=== PATIENT | female | born 1985 | race Hispanic/Latino ===

== ENCOUNTER 2019-02-17 17:07 | Observation (INO) | payer MEDICAID ==
[2019-02-17 17:48] LABS: APPEARANCE,URINE Clear (CLEAR); BILIRUBIN,URINE Negative (NEGATIVE); COLOR,URINE Yellow (YELLOW); GLUCOSE, URINE (UA) Negative (NEGATIVE); KETONES,URINE Negative (NEGATIVE); LEUKOCYTE ESTERASE ,URINE Moderate (NEGATIVE); NITRATE,URINE Negative (NEGATIVE); OCCULT BLOOD,URINE Negative (NEGATIVE); PH,URINE 6.5 (5.0-8.0); PROTEIN,URINE Negative (NEGATIVE)
[2019-02-17 17:54] LABS: BACTERIA,URINE Many /HPF (None Seen); RBC,URINE None Seen /HPF (0-1)
== END 2019-02-17 18:45 | disposition home or self-care (01) ==
LOC: EDH 17:07 → LDH 17:08 → UNDOADMOB 17:20
PROVIDERS: ADMIT Obstetrics & Gynecology; ATTEND Obstetrics & Gynecology
DX: O99.89 Other specified diseases and conditions complicating pregnancy, childbirth and the puerperium (principal); M79.89 Other specified soft tissue disorders; M54.5 Low back pain; Z87.891 Personal history of nicotine dependence; Z3A.38 38 weeks gestation of pregnancy
CPT/HCPCS: 81001; 99284; G0378

== ENCOUNTER → 2023-04-14 | Emergency (ER) | payer MEDICAID, OTHER ==
[~2023-04-14] VITALS: Ht 154.9 cm; Wt 79.4 kg
[~2023-04-14] MED LIST: ALBU90AE2 IH; AMOX1TAB16 PO; AZIT250T9 PO; IBUP-2077 PO; IOHEXOL 350 MG/ML 100ML INFUS..BTL IV ONE; OMEP20CA12 PO; PREN-154 PO
[2023-04-14 20:28] LABS: BASOPHILS # (AUTO) 0.02 K/uL (0.00-0.20); BASOPHILS % (AUTO) 0.5 % (0.0-5.0); HEMATOCRIT 30.9 % (36-48); IMMATURE GRANULOCYTE ABSOLUTE 0.19 K/uL (0-1); LYMPHOCYTES # (AUTO) 0.7 K/uL (1.0-4.8); LYMPHOCYTES % (AUTO) 16.4 % (21.0-51.0); MEAN CORPUSCULAR HEMOGLOBIN 26.7 pg (27.0-33.0); MEAN CORPUSCULAR HGB CONC 32.4 g/dL (32.0-36.0); MEAN CORPUSCULAR VOLUME 82.6 fL (79-99); MONOCYTES # (AUTO) 0.2 K/uL (0.1-1.0); MONOCYTES % (AUTO) 4.5 % (3.0-13.0); NEUTROPHILS # (AUTO) 3.2 K/uL (1.8-7.7); NEUTROPHILS % (AUTO) 74.1 % (40.0-77.0); PLATELET COUNT (AUTO) 193 K/uL (130-400); RED BLOOD CELL COUNT(AUTO) 3.74 MIL/uL (4.00-5.50); RED CELL DISTRIBUTION WIDTH 13.3 % (11.0-15.5); WHITE BLOOD COUNT (AUTO) 4.3 K/uL (4.8-10.8)
[2023-04-14 20:31] LABS: APPEARANCE,URINE CLEAR (CLEAR); BILIRUBIN,URINE NEGATIVE (NEGATIVE); COLOR,URINE LIGHT-YELLOW (YELLOW); GLUCOSE, URINE (UA) 30 mg/dL (NEGATIVE); KETONES,URINE NEGATIVE (NEGATIVE); LEUKOCYTE ESTERASE ,URINE NEGATIVE Leu/uL (NEGATIVE); NITRATE,URINE NEGATIVE (NEGATIVE); OCCULT BLOOD,URINE NEGATIVE (NEGATIVE); PROTEIN,URINE NEGATIVE (NEGATIVE); UROBILINOGEN,URINE 0.2 mg/dL (0.2-1.0)
[2023-04-14 20:32] LABS: ADD UA MICROSCOPIC YES
[2023-04-14 20:36] LABS: HCG,QUALITATIVE URINE NEGATIVE (NEGATIVE)
[2023-04-14 20:38] LABS: CREATININE 0.7 mg/dL (0.5-1.5); POTASSIUM 3.3 mmol/L (3.5-5.1)
[2023-04-14 20:43] LABS: ALBUMIN 3.1 g/dL (3.5-5.0); BILIRUBIN,TOTAL 0.3 mg/dL (0.2-1.0); TOTAL PROTEIN, SERUM 6.7 g/dL (6.0-8.3)
[2023-04-14 20:45] LABS: BACTERIA,URINE RARE /HPF (None Seen); MUCUS,URINE RARE LPF (None Seen); SQUAMOUS EPITHELIAL CELL,UR FEW /HPF (0-2)
[2023-04-14 20:55] LABS: BAND NEUTROPHILS % (MANUAL) 64 % (0-2); EOSINOPHILS % (MANUAL) 2 % (1-6); LYMPHOCYTES % (MANUAL) 10 % (22-44); MAN.DIFF COMMENT-IMPRESSION MANUAL DIFFERENTIAL; MONOCYTES % (MANUAL) 2 % (2-9); REACTIVE LYMPHOCYTES 2 % (0-0); SEGMENTED NEUTROPHILS % 20 % (40-70); TOTAL CELLS COUNTED 100
[2023-04-14 20:58] LABS: WBC MORPHOLOGY TOXIC GRANULATION 1+
[2023-04-14] MEDS: IBUPROFEN 600 MG TABLET PO ONE (22:11)
[2023-04-14 22:12] VITALS: TEMP 102.8
[2023-04-14] MEDS: ACETAMINOPHEN 500 MG TABLET PO ONE (22:12)
[2023-04-14 22:19] LABS: RAPID GROUP A STREP negative (NEGATIVE)
[2023-04-14 22:24] LABS: SARS-CoV-2, RNA, NAAT NEGATIVE SARS CoV-2 (NEGATIVE)
[2023-04-14 22:29] LABS: INFLUENZA TYPE A Negative For Type A (NEGATIVE); INFLUENZA TYPE B Negative For Type B (NEGATIVE)
[2023-04-14 22:48] LABS: INR 0.94 (0.85-1.15); PROTHROMBIN TIME 10.9 SEC (9.6-11.6)
[2023-04-14 22:50] LABS: PARTIAL THROMBOPLASTIN TIME 30.8 SEC (26.3-35.5)
[2023-04-15] MEDS: CEFTRIAXONE 1G VIAL IVPB ONE (00:02)
[2023-04-15] MEDS: 0.9% NACL 500ML IV.SOLN 500 ML IV ONE ×2 (00:06)
[2023-04-15 01:06] VITALS: BP 124/74; PULSE 78; RESP 20; O2SAT 99
== END ==
LOC: EDH 18:05
DX: J18.9 Pneumonia, unspecified organism (principal); R79.89 Other specified abnormal findings of blood chemistry; Z90.49 Acquired absence of other specified parts of digestive tract; Z20.822 Contact with and (suspected) exposure to COVID-19
CPT/HCPCS: 99285; 74178; 96374; 71045; 87635; 82550; 84484; 80053; 85025; 85610; 85730; 87040 ×2; 87088; 87880; 87804 ×2; 83605; 82010; 81001; 81025; 36415; 84145; J7040; J0696; Q9967

== ENCOUNTER 2023-04-16 20:13 | Emergency (ER) | payer OTHER ==
[~2023-04-16] VITALS: Ht 154.9 cm; Wt 79.4 kg
[~2023-04-16 20:13] MED LIST changes: -AMOX1TAB16 PO; -IBUP-2077 PO; -IOHEXOL 350 MG/ML 100ML INFUS..BTL IV ONE
[2023-04-16] MEDS: IBUPROFEN 800 MG TAB PO SCH (21:30)
[2023-04-16 21:55] LABS: RAPID GROUP A STREP negative (NEGATIVE)
[2023-04-16 22:04] VITALS: BP 105/68; PULSE 110; RESP 18; O2SAT 98
[2023-04-16 22:06] LABS: INFLUENZA TYPE A Negative For Type A (NEGATIVE); INFLUENZA TYPE B Negative For Type B (NEGATIVE)
[2023-04-16 22:56] LABS: COVID19 (SARS ANTIGEN RAPID) PRESUMPTIVE NEGATIVE (NEGATIVE)
[2023-04-17] MEDS ORDERED: IBUP-2077 PO (01:32)
[2023-04-17] MEDS ORDERED: AMOX1TAB16 PO (01:32)
[2023-04-17 01:58] VITALS: TEMP 99.9
[2023-04-17] MEDS: CEFTRIAXONE 1G VIAL IM ONE (01:58)
[2023-04-17] MEDS: IBUPROFEN 800 MG TAB PO ONE (01:58)
[2023-04-19 23:08] LABS: SPOTTED FEVER GROUP IGG <1:64 (Neg:<1:64); SPOTTED FEVER GROUP IGM <1:64 (Neg:<1:64)
[2023-04-21 16:11] LABS: TYPHUS FEVER IGG <1:64 (Neg:<1:64); TYPHUS FEVER IGM <1:64 (Neg:<1:64)
== END 2023-04-17 02:00 | disposition home or self-care (01) ==
LOC: EDH 20:13
DX: J18.9 Pneumonia, unspecified organism (principal); J01.90 Acute sinusitis, unspecified; Z90.49 Acquired absence of other specified parts of digestive tract; Z20.822 Contact with and (suspected) exposure to COVID-19
CPT/HCPCS: 99284; 87426; 87880; 87804 ×2; 87252; 86757 ×3; 86638 ×5; 36415; 96372; J0696

== ENCOUNTER 2024-05-29 00:09 | Emergency (ER) | payer MEDICAID, OTHER ==
[~2024-05-29] VITALS: Ht 154.9 cm; Wt 81.6 kg
[~2024-05-29 00:09] MED LIST changes: -ALBU90AE2 IH; +ALBU90AE3 IH; +AMOX1TAB16 PO; +IBUP-2077 PO
--- NOTE | 2024-05-29 00:30 | ERN ---
ED Note History of Present Illness Stated Complaint: SORE THROAT Chief Complaint: Sore Throat Time Seen by MD: 00:11 Time Seen by Midlevel: 00:11 Dictation: The patient is a 38-year-old female with a history of cholecystectomy, appendectomy who presents to the emergency department with complaints of nasal congestion, sore throat, cough onset one week ago. Patient reports a fevers at home at 100. Patient reports she is about seven weeks denies any abdominal pain or vaginal bleeding. Allergies: Coded Allergies: No Known Allergies (Verified Allergy, 04/24/12) Home Meds Active Scripts Ibuprofen (Ibuprofen 800 mg Tab) 800 Mg Tab, 800 MG PO Q8H PRN for fever or pain, #12 TAB 0 Refills Prov:EVGENY WARD 04/17/23 Amoxicillin/Potassium Clav (Amox Tr-K Clv 875-125 mg Tab) 875 Mg-125 Mg Tablet, 1 EACH PO BID for 10 Days, #20 TAB 0 Refills Prov:EVGENY WARD 04/17/23 Albuterol Sulfate (Proair Digihaler) 90 Mcg Aer.pw.bas, 90 MCG IH QID, #1 INHALER Prov:TESFAYE HARMON V INDUCTION MACHINE OPERATOR 04/15/23 Azithromycin (Azithromycin) 250 Mg Tablet, 250 MG PO DAILY for 5 Days, #6 TAB Take 2 now then 1 daily until complete Prov:TESFAYE HARMON V INDUCTION MACHINE OPERATOR 04/15/23 Reported Medications Vits #93/Iron Fum/FA ( Formula Tablet) 1 Each Tablet, 1 EACH PO DAILY, TAB 02/27/19 Omeprazole (Omeprazole) 20 Mg Capsule.dr, 20 MG PO AD, CAP 02/26/19 Past Medical History Past Medical History: No Pertinent History Surgical History: Appendectomy, Cholecystectomy LMP: Apr 13, 2024 RN Note Reviewed/Agreed w/PFSH: Yes Review of System Dictation Constitutional: Negative for chills, and weight loss positive for fever Eyes: Negative for injury, pain,redness, and discharge ENT: Negative for injury,pain or swelling positive for sore throat Cardiovascular: Negative for chest pain, palpitations, and edema Respiratory: Negative for shortness of breath,and wheezing, positive for cough Abdomen/GI: Negative for abdominal pain, nausea, vomiting, diarrhea, and constipation Back: Negative for injury and pain : Negative for injury, bleeding and discharge MS/Extremity: Negative for injury and deformity Skin: Negative for rash, and discoloration Neuro: Negative for headache, weakness, numbness, tingling, and seizure Psych: Negative for suicide ideation, homicidal ideation, and hallucinations Initial Vital Sign VS Vital Signs Date Time Temp Pulse Resp B/P (MAP) Pulse Ox O2 Delivery O2 Flow Rate FiO2 05/29/24 00:11 99.1 97 20 114/74 100 Room Air 05/29/24 01:11 0 21 Physical Exam Dictation Vital Signs reviewed General Appearance: Alert, oriented x 3, no acute distress, well developed, nourished. Head and Face: non-traumatic. Eyes: PERRL, pink conjunctivas, eyelid no trauma, anterior chamber with arcus senilis. Ears: Pinnas intact and no signs of trauma or erythema ear canals clear and no discharge TM no erythema Nose: No discharge, no bleeding. Oropharynx: Mouth normal, tongue pink. pharynx clear,no erythema, tonsils no exudates, no abscesses noted, mucous membrane moist Neck: Supple, non-tender, no thyromegaly, no masses, no JVD, no bruits Breast:Deferred Chest:No tenderness, no crepitus, no paradoxical movement, no retractions Lungs:Clear, well-ventilated, symmetric, no rales, no wheezing, no rhonchi, no stridor, good breath sounds bilaterally Heart: Regular rate, regular rhythm, no murmur, no gallops Vascular: no peripheral edema, Abdomen: Soft, positive bowel sounds, nondistended, no guarding, nontender, no rebound, no masses no hepatomegaly, no splenomegaly, no [place]'s sign, no hernias. Rectal: Deferred Genital: Deferred Neurological: Normal speech, motor function intact, sensory function intact Musculoskeletal: Neck nontender, full range of motion, back nontender, full range of motion, Extremities: nontender, full range of motion Skin: Color pink, dry, no turgor, no rash, no lacerations, no abrasions, no contusions. Lymphatic: Deferred Results (Laboratory/Radiology) Laboratory/Radiology Laboratory Tests Test 05/29/24 00:45 Influenza Type A Antigen Negative For Type A Influenza Type B Antigen Negative For Type B SARS-CoV-2 Antigen (Rapid) PRESUMPTIVE NEGATIVE Group A Streptococcus Rapid negative (NEGATIVE) Labs Reviewed?: Yes ED Course ED Course Orders Procedure Category Date Status Time Influenza Type A & B, LAB 05/29/24 Complete Rapid 00:24 Covid19 (Sars Antigen LAB 05/29/24 Complete Rapid) 00:24 Rapid (Group A Strep) LAB 05/29/24 Complete 00:24 Acetaminophen 500mg PHA 05/29/24 Complete Tab (Tylenol 500mg T 00:30 Current Medications Medications (Trade) Dose Ordered Sig/Bernie Route PRN Reason Start Time Stop Time Status Last Admin Dose Admin Acetaminophen (TYLenol 500MG TAB) 1,000 mg ONCE ONCE PO 05/29/24 00:30 05/29/24 00:31 DC 05/29/24 00:48 Vital Signs Date Time Temp Pulse Resp B/P (MAP) Pulse Ox O2 Delivery O2 Flow Rate FiO2 05/29/24 01:11 99.1 97 18 120/74 98 Room Air* 0 21 05/29/24 00:11 99.1 97 20 114/74 100 Room Air Medical Decision Making MDM The patient is a 38-year-old female with a history of cholecystectomy, appendectomy who presents to the emergency department with complaints of nasal congestion, sore throat, cough onset one week ago. Patient reports a fevers at home at 100. Patient reports she is about seven weeks denies any abdominal pain or vaginal bleeding. Denies any OB complaints. Follows up with her OBGYN Serology negative. Patient has symptoms consistent with a upper respiratory infection. Patient in no acute distress. Clear lung thibodeaux. We will be discharged to follow up with primary doctor Differential diagnosis: Influenza a, pharyngitis, strep throat, URI Need for hospitalization: Patient does not meet criteria for hospitalization. There are no social concerns with this patient. DX & DISP Disposition: Discharge Departure Impression: Primary Impression: URI (upper respiratory infection) Condition: Stable Additional Instructions: FOLLOW-UP WITH PRIMARY CARE PROVIDER IN 1 TO 2 DAYS. TAKE MEDICATIONS DIRECTED HERE IN THE EMERGENCY ROOM. OKAY TO CONTINUE HOME MEDICATIONS UNLESS OTHERWISE DISCUSSED DURING YOUR VISIT IN THE EMERGENCY ROOM TODAY. RETURN TO YOUR NEAREST EMERGENCY ROOM IF SYMPTOMS WORSEN OR IF THERE IS NO IMPROVEMENT. CALL 911 IF YOU NEED IMMEDIATE ASSISTANCE. TAKE TYLENOL [id number] NEEDED AND IF NO CONTRAINDICATIONS ARE PRESENT. INCREASE ORAL HYDRATION. A WOUND CULTURE OR URINE CULTURE WAS ORDERED HERE IN THE EMERGENCY ROOM DEPARTMENT PLEASE FOLLOW-UP WITH PRIMARY CARE PROVIDER AND ADVISE THEM TO GET REPEAT PORTS FROM OUR FACILITY. IF YOU HAD ANY LUIS WRAP/SPLINTS THAT WERE APPLIED HERE, PLEASE DO NOT REMOVE THEM UNTIL YOU SEE YOUR PRIMARY CARE OR SPECIALTY. Referrals: PAWAN FERREIRA (PCP) Time of Disposition: 01:40 I have reviewed the case, and I agree with, Diagnosis and Plan ISRAEL PATRICK May 29, 2024 00:30
[2024-05-29] MEDS: acetaMINOPHEN 500 MG TABLET PO ONE (00:48)
[2024-05-29 01:17] LABS: RAPID GROUP A STREP negative (NEGATIVE)
[2024-05-29 01:28] LABS: COVID19 (SARS ANTIGEN RAPID) PRESUMPTIVE NEGATIVE (NEGATIVE)
[2024-05-29 01:38] LABS: INFLUENZA TYPE A Negative For Type A (NEGATIVE); INFLUENZA TYPE B Negative For Type B (NEGATIVE)
[2024-05-29 02:28] VITALS: BP 116/76; PULSE 89; RESP 18; TEMP 98.6; O2SAT 100
== END 2024-05-29 02:30 | disposition home or self-care (01) ==
LOC: EDH 00:09
DX: J06.9 Acute upper respiratory infection, unspecified (principal); Z90.49 Acquired absence of other specified parts of digestive tract; Z20.822 Contact with and (suspected) exposure to COVID-19
CPT/HCPCS: 87426; 87804; 87880; 99283